=== PATIENT | male | born 1985 | race Caucasian/White ===

== ENCOUNTER → 2017-10-24 | Outpatient (CLI) | payer MEDICAID ==
--- NOTE | 2017-10-24 12:40 | XR ---
EXAMINATION TYPE: XR lumbar spine 2 or 3V DATE OF EXAM: 10/24/2017 COMPARISON: NONE HISTORY: Low back pain TECHNIQUE: Three-view lumbar spine FINDINGS: There 5 lumbar-type vertebral bodies. The pedicles are intact. Disc heights are preserved. Vertebral body heights are preserved. Alignment is normal. IMPRESSION: 1. Normal 5 view lumbar spine
--- NOTE | 2017-10-24 12:49 | XR ---
EXAMINATION TYPE: XR thoracic spine complete DATE OF EXAM: 10/24/2017 COMPARISON: NONE HISTORY: Pain in thoracic spine TECHNIQUE: Two-view thoracic spine supplemented with a transthoracic swimmer's view FINDINGS: Thoracic vertebral bodies appear intact. Vertebral body heights are preserved. Pedicles are intact. Alignment appears normal. IMPRESSION: 1. Visualized thoracic spine appears within normal limits.
== END | disposition home or self-care (01) ==
LOC: RADXRMAIN 11:50
PROVIDERS: ATTEND Physician Assistant
DX: M54.5 Low back pain (principal); M54.6 Pain in thoracic spine
CPT/HCPCS: 72072; 72100

== ENCOUNTER 2019-03-10 19:44 | Emergency (ER) | payer OTHER ==
[2019-03-10 19:51] VITALS: BP 130/85; PULSE 86; RESP 16; TEMP 97.9
[2019-03-10] MEDS ORDERED: PROPARACAINE 0.5% OPHTH DROPS 15 ML BTL LEFT EYE STA (20:08)
[2019-03-10] MEDS ORDERED: ACET/COD 300 MG/30 MG STARTER PACK 6 TAB BTL PO STA (20:36)
--- NOTE | 2019-03-10 20:36 | ED ---
Eye Problem HPI - General Chief complaint: Eye Problems Stated complaint: metal in eye Time Seen by Provider: 03/10/19 19:52 Source: patient Mode of arrival: ambulatory Limitations: no limitations - History of Present Illness Initial comments: She to 34-year-old who presents emergency Department with a chief complaint of eye pain. 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 Patient reports he went to urgent care a few hours ago who prescribed him TobraDex and referred him to the emergency department. Patient reports discomfort with extra ocular movements. Patient denies eye discharge. Patient denies blurry vision, headache, nausea or vomiting. Patient reports the discomfort is alleviated with the eyes closed. Patient denies taking [id number] medications alleviate the symptoms. - Related Data Home Medications Medication Instructions Recorded Confirmed Sulfamethox-Tmp 800-160Mg [Bactrim 1 each PO Q12HR 12/06/14 12/06/14 Ds] Previous Rx's Medication Instructions Recorded HYDROcodone/APAP 5-325MG [[facility] 1 each PO Q6HR PRN #20 tab 12/06/14 5-325] Sulfamethoxazole/Trimethoprim 2 each PO Q12H #56 tab 12/06/14 [Bactrim DS 800-160 mg] Allergies Allergy/AdvReac Type Severity Reaction Status Date / Time No Known Allergies Allergy Verified 03/10/19 19:51 Review of Systems ROS Statement: Those systems with pertinent positive or pertinent negative responses have been documented in the HPI. ROS Other: All systems not noted in ROS Statement are negative. Past Medical History Past Medical History: No Reported History History of Any Multi-Drug Resistant Organisms: MRSA Date of last positivie culture/infection: 12/06/2014 MDRO Source:: Right Leg Past Surgical History: Hernia Repair Past Psychological History: No Psychological Hx Reported Smoking Status: Current every day smoker Past Alcohol Use History: Occasional Past Drug Use History: None Reported General Exam Limitations: no limitations General appearance: alert, in no apparent distress Head exam: Present: atraumatic, normocephalic, normal inspection Eye exam: Present: normal appearance, PERRL, EOMI, conjunctival injection (Left eye), other (1 mm foreign body noted at 3:00. No discharge noted) Pupils: Present: normal accommodation, other (Fluorescent stain was a corneal abrasion at 3:00 after foreign body removal. Negative Smiley sign.) ENT exam: Present: normal exam, mucous membranes moist, normal external ear exam Neck exam: Present: normal inspection, full ROM Respiratory exam: Present: normal lung sounds bilaterally Cardiovascular Exam: Present: regular rate, normal rhythm, normal heart sounds Extremities exam: Present: normal inspection, full ROM Back exam: Present: normal inspection, full ROM Neurological exam: Present: alert, oriented X3 Psychiatric exam: Present: normal affect, normal mood Skin exam: Present: warm, intact, normal color Course Vital Signs 03/10/19 19:48 Temperature 97.9 F Pulse Rate 86 Respiratory 16 Rate Blood Pressure 130/85 O2 Sat by Pulse 98 Oximetry Procedures - Procedures Initial comment: eye foreign body removal: Proparacaine eyedrops were used for local anesthesia. One millimeter foreign body noted at 3:00 those removed using an matilda brush. Patient tolerated procedure well. Medical Decision Making - Medical Decision Making Patient is a 34-year-old male presenting to emergency Department with a chief complaint of left eye pain. Foreign-body the left eye was removed with an matilda brush. Patient was ready given tobramycin drops from the urgent care prior to coming to the ER. Patient was to continue taking the ophthalmic drops. Patient also given Tylenol 3 starter pack for pain that along to due to the use of the matilda brush. Strict return parameters were thoroughly discussed the patient was understanding and agreeable. Case discussed physician. Disposition Clinical Impression: Foreign body, eye Disposition: HOME SELF-CARE Condition: Stable Instructions (If sedation given, give patient instructions): Eye Lubricant (Into the eye) Additional Instructions: Please take prescribed medication as directed. Please follow with primary care. Please return to emergency department if symptoms worsen. Is patient prescribed a controlled substance at d/c from ED?: No Referrals: None,Stated [Primary Care Provider] - 1-2 days Time of Disposition: 20:36
== END 2019-03-10 20:49 | disposition home or self-care (01) ==
LOC: EC 19:44
DX: T15.92XA Foreign body on external eye, part unspecified, left eye, initial encounter (principal); F17.200 Nicotine dependence, unspecified, uncomplicated
CPT/HCPCS: 65205; 99283